=== PATIENT | male | born 2000 | race African-American/Black ===

== ENCOUNTER 2018-11-03 17:45 | Emergency (ER) | payer OTHER ==
[~2018-11-03] VITALS: Ht 172.7 cm; Wt 54.4 kg
[2018-11-03 18:07] VITALS: BP 135/83
[2018-11-03] MEDS ORDERED: cefTRIAXone SOD 1,000 MG VL IM ONE (19:30)
[2018-11-03] MEDS ORDERED: ACETAMINOPHEN/CODEINE#3 (300/30mg) TAB PO ONE (19:30)
== END 2018-11-03 20:34 | disposition home or self-care (01) ==
LOC: ER 17:45
DX: S62.633A Displaced fracture of distal phalanx of left middle finger, initial encounter for closed fracture (principal); S60.132A Contusion of left middle finger with damage to nail, initial encounter; W22.8XXA Striking against or struck by other objects, initial encounter; Y93.89 Activity, other specified; Y99.8 Other external cause status; Y92.89 Other specified places as the place of occurrence of the external cause
CPT/HCPCS: 11740; 73130; 96372; 99283; J0696